=== PATIENT | female | born 1995 | race Caucasian/White ===

== ENCOUNTER 2017-07-23 21:25 | Emergency (ER) | payer OTHER ==
[~2017-07-23] VITALS: Ht 160 cm; Wt 98.4 kg
[2017-07-23 21:30] VITALS: Ht 160 cm; Wt 98.4 kg
[2017-07-23 22:36] VITALS: BP 129/79
== END 2017-07-23 22:05 | disposition home or self-care (01) ==
LOC: ED 21:25
DX: L02.416 Cutaneous abscess of left lower limb (principal); L03.116 Cellulitis of left lower limb
CPT/HCPCS: J0696